=== PATIENT | male | born 1985 | race Caucasian/White ===

== ENCOUNTER → 2021-08-08 | Outpatient (CLI) | payer SELFPAY ==
[2021-08-08 11:06] LABS: PROTHROMBIN TIME PATIENT 12.7 SEC (11.7-14.0)
== END ==
LOC: LAB 10:17
PROVIDERS: ATTEND Physician Assistant Medical
DX: Z01.812 Encounter for preprocedural laboratory examination (principal)
CPT/HCPCS: 36415; 85610